=== PATIENT | male | born 1965 | race Caucasian/White ===

== ENCOUNTER 2020-01-20 13:23 | Observation (INO) ==
[2020-01-20] MEDS: NS 1000 ML 1,000 ML IV SCH ×2 (15:30→22:23)
[2020-01-20 15:42] LABS: BASOPHILS % (AUTO) 0.2 % (0.2-1.0); HEMATOCRIT 50.8 % (42.0-54.0); HEMOGLOBIN 17.4 g/dL (13.5-18.0); LYMPHOCYTES # (AUTO) 0.7 X10^3/uL (1.3-2.9); MEAN CORPUSCULAR HEMOGLOBIN 31.9 pg (27.0-34.0); MEAN CORPUSCULAR HGB CONC 34.3 g/dL (33.0-35.0); MEAN CORPUSCULAR VOLUME 93.2 fL (80.0-100.0); MEAN PLATELET VOLUME 6.9 fL (7.4-11.0); NEUTROPHILS # (AUTO) 5.4 x10^3/uL (2.2-4.8); NEUTROPHILS % (AUTO) 75.8 % (42.0-75.0); PLATELET COUNT 189 X10^3/uL (150.0-450.0); RED BLOOD COUNT 5.46 X10^6/uL (4.7-6.0); RED CELL DISTRIBUTION WIDTH 12.8 % (11.6-16.5); WHITE BLOOD COUNT 7.2 X10^3/uL (3.6-10.0)
--- NOTE | 2020-01-20 15:48 | RAD ---
HISTORYrespiratory distress, covid positiveSTUDYCHEST, 1 VIEWCOMPARISONNone.FINDINGSThe trachea is midline. The cardiac silhouette is unremarkable. Chronic emphysematous changes. The lungs are clear without focal infiltrate, pneumothorax, or effusion. The bony thorax is unremarkable.IMPRESSIONNo acute cardiopulmonary disease.Electronically signed by: LILY BARNETT (Jan 20, 2020 15:46:40)
[2020-01-20 15:50] LABS: ALANINE AMINOTRANSFERASE 30 Units/L (12-78); ALBUMIN 3.5 g/dL (3.4-5.0); ALKALINE PHOSPHATASE 92 Units/L (46-116); ASPARTATE AMINO TRANSFERASE 18 Units/L (15-37); BLOOD UREA NITROGEN 13 mg/dL (7-18); CARBON DIOXIDE 29.7 mmol/L (21-32); CHLORIDE 96 mmol/L (98-107); CREATININE 1.21 mg/dL (0.70-1.30); SODIUM 134 mmol/L (136-145); TOTAL PROTEIN 6.8 g/dL (6.4-8.2); eGFR NON BLACK RACES > 60 (>60)
[2020-01-20] MEDS ORDERED: REMDESIVIR 200 MG in NS 250 ML IV 250 ML IV SCH (16:00)
[2020-01-20 16:20] LABS: ERYTHROCYTE SEDIMENTATION RATE 2 MM/HOUR (0-15)
[2020-01-20] MEDS: DUONEB 0.5 MG/3 MG (3 mL) NEB SCH ×2 (16:25→21:44)
[2020-01-20] MEDS: SOLU-Medrol 40 MG VIAL IVP SCH ×2 (16:30→21:02)
[2020-01-20 18:39] LABS: BILIRUBIN,URINE NEGATIVE (NEGATIVE); BLOOD/HEMOGLOBIN,URINE NEGATIVE (NEGATIVE); GLUCOSE, URINE NEGATIVE (NEGATIVE); KETONES,URINE 2+ (NEGATIVE); LEUKOCYTE ESTERASE ,URINE NEGATIVE (NEGATIVE); NITRITES,URINE NEGATIVE (NEGATIVE); PH,URINE 6.5 (5.0 - 8.0); PROTEIN,URINE NEGATIVE (NEGATIVE); UROBILINOGEN,URINE NORMAL (NORMAL)
[2020-01-20 18:46] LABS: APPEARANCE,URINE CLEAR (CLEAR); COLOR,URINE STRAW (YELLOW)
[2020-01-20] MEDS: CIPRO IV 400 MG PREMIX* 400 MG/200 ML IV.SOLN. IV SCH ×2 (18:50→21:01)
[2020-01-20] MEDS: LOVENOX INJ 30 MG SYR SC SCH (21:01)
[2020-01-20] MEDS: ROBITUSSIN DM PO PRN (21:02)
[2020-01-20] MEDS: PULMICORT NEB TX 0.5 MG NEB SCH (21:44)
[2020-01-21 05:41] LABS: BASOPHILS % (AUTO) 0.6 % (0.2-1.0); HEMATOCRIT 45.8 % (42.0-54.0); LYMPHOCYTES # (AUTO) 0.4 X10^3/uL (1.3-2.9); LYMPHOCYTES % (AUTO) 6.7 % (21.0-51.0); MEAN CORPUSCULAR HEMOGLOBIN 32.3 pg (27.0-34.0); MEAN CORPUSCULAR HGB CONC 34.9 g/dL (33.0-35.0); MEAN CORPUSCULAR VOLUME 92.6 fL (80.0-100.0); MONOCYTES # (AUTO) 0.1 x10^3/uL (0.3-0.8); MONOCYTES % (AUTO) 2.1 % (0.0-13.0); NEUTROPHILS # (AUTO) 5.1 x10^3/uL (2.2-4.8); NEUTROPHILS % (AUTO) 90.6 % (42.0-75.0); PLATELET COUNT 183 X10^3/uL (150.0-450.0); RED BLOOD COUNT 4.94 X10^6/uL (4.7-6.0); RED CELL DISTRIBUTION WIDTH 13.1 % (11.6-16.5); WHITE BLOOD COUNT 5.6 X10^3/uL (3.6-10.0)
[2020-01-21] MEDS: SOLU-Medrol 40 MG VIAL IVP SCH ×3 (05:43→21:11)
[2020-01-21 05:53] LABS: ALANINE AMINOTRANSFERASE 25 Units/L (12-78); ALBUMIN 2.9 g/dL (3.4-5.0); ALKALINE PHOSPHATASE 76 Units/L (46-116); ASPARTATE AMINO TRANSFERASE 11 Units/L (15-37); BLOOD UREA NITROGEN 12 mg/dL (7-18); CARBON DIOXIDE 23.1 mmol/L (21-32); CHLORIDE 100 mmol/L (98-107); COR CA(FOR HYPOALB) 9.9 mg/dL (8.5-10.1); COR NA(FOR HYPERGLY) 140 mmol/L (136-145); CREATININE 1.28 mg/dL (0.70-1.30); SODIUM 137 mmol/L (136-145); eGFR NON BLACK RACES > 60 (>60)
[2020-01-21 06:08] LABS: ABG BASE EXCESS -3.2 mmol/L (-2.0-2.0); ABG HCO3 21.2 mmol/L (22-26)
[2020-01-21 06:53] LABS: PLATELET MORPHOLOGY COMMENT NORMAL (NORMAL)
[2020-01-21] MEDS: NS 1000 ML 1,000 ML IV SCH ×3 (06:59→22:30)
--- NOTE | 2020-01-21 07:43 | RAD ---
[id number], RESPIRATORY DISTRESSSTUDYCHEST, 1 [id number]/13/2020FINDINGSThe trachea is midline. The cardiac silhouette is stable. The lungs are clear without focal infiltrate or effusion. The bony thorax is unremarkable.IMPRESSIONNo acute cardiopulmonary disease.Electronically signed by: SREEKANTH CARRASCO (Jan 21, 2020 07:41:17)
[2020-01-21] MEDS: CIPRO IV 400 MG PREMIX* 400 MG/200 ML IV.SOLN. IV SCH ×2 (08:06→20:53)
[2020-01-21] MEDS: LOVENOX INJ 30 MG SYR SC SCH ×2 (08:06→20:54)
[2020-01-21] MEDS: ROBITUSSIN DM PO PRN ×2 (08:07→20:54)
[2020-01-21] MEDS: REMDESIVIR 100 MG in NS 250 ML IV 250 ML IV SCH (09:18)
[2020-01-21] MEDS: DUONEB 0.5 MG/3 MG (3 mL) NEB SCH ×4 (09:23→21:29)
[2020-01-21] MEDS: PULMICORT NEB TX 0.5 MG NEB SCH ×2 (09:23→21:29)
--- NOTE | 2020-01-21 11:24 | DR.H&P ---
H&P - History & Physical for Day of: H&P Date: 01/20/20 - Chief Complaint Chief Complaint: COUGH, FEVER, SOB, HEADACHE, WEAKNESS - History of Present Illness History of Present Illness: IS A 54 YEAR OLD PATIENT OF OURS WHO PRESENTED TO THE HOSPITAL A DIRECT ADMISSION DUE TO COMPLAINTS OF COUGH, FEVER, SHORTNESS OF BREATH, HEADACHE, AND GENERALIZED WEAKNESS. HIS OXYGEN SATURATIONS ON ROOM AIR WERE NOTED TO BE 84%. PATIENT TESTED POSITIVE FOR COVID- 19 ABOUT A WEEK AGO. AT THAT TIME, HE WAS STARTED ON A MEDROL DOSEPACK, AZITHROMYCIN 250MG PO DAILY, AND PLAQUENIL 200MG PO BID X 5 DAYS. HE HAS FINISHED THE COURSE OF MEDICATIONS, BUT CONTINUED TO REPORT WORSENING DESPITE COMPLIANCE WITH MEDICATIONS. HE WAS ADMITTED TO THE HOSPITAL FOR FURTHER EVALUATION AND TREATMENT OF ACUTE BRONCHITIS DUE TO COVID-19. ON ARRIVAL TO THE HOSPITAL, VITALS WERE 98.5-100-18-95%RA-126/73. LABS WERE OBTAINED. ABNORMAL LAB VALUES INCLUDE THE FOLLOWING: SODIUM 134, CHLORIDE 96, CRP 32.20. BLOOD AND SPUTUM CULTURES WERE SET UP. AN ABG WAS OBTAINED AND REVEALED: 7.390, PC02 35.0, P02 64.0, HC03 21.2, 02 SAT 92.0, BASE EXCESS -3.2, FI02 21.0. COVID-19 POSITIVE. A CHEST XRAY WAS OBTAINED AND REVEALED WORSENING BILATERAL PNEUMONIA. A CHEST XRAY WAS OBTAINED AND REVEALED: The trachea is midline. The cardiac silhouette is unremarkable. Chronic emphysematous changes. The lungs are clear without focal infiltrate, pneumothorax, or effusion. The bony thorax is unremarkable. AN EKG WAS OBTAINED AND REVEALED: SINUS TACHYCARDIA WITH HR 104. HE WAS GIVEN K-DUR 20MEQ X 1, LASIX 20MG IV X 1, AND ROCEPHIN 1G IV X 1 IN THE ER. HE WAS STARTED ON NORMAL SALINE AT 125ML/HR, REMDESIVIR 100MG IV DAILY, CIPRO 400MG IV Q12H, DUONEBS QID, PULMICORT NEBS BID, LOVENOX 30MG SC BID, ROBITUSSIN DM 10 ML PO Q4H PRN, AND SOLU-MEDROL 80MG IV Q8H. WE WILL OBTAIN AN ECHO AND PLACE HIM ON SUPPLEMENTAL OXYGEN NECESSARY. OTHERWISE, WE PLAN TO FOLLOW UP WITH AM LABS, CHEST XRAY, ABG, AND CONTINUE TO MONITOR. - Past Surgical History Surgical History: Other Additional Surgical History: CORNEA TRANSPLANT - Social History Does patient currently use any type of tobacco product: No Have you used tobacco products in the last 12 months: No Type of Tobacco Use: None Alcohol Use: None Drug Use: None - Medications Home Medications: No Known Drug Allergies Allergy (Verified 10/12/18 10:07) - Review of Systems Constitutional: Fever, Weakness Eyes: No Symptoms Reported ENT: No Symptoms Reported Respiratory: Cough, Shortness of Breath Cardiovascular: No Symptoms Reported Gastrointestinal: No Symptoms Reported Genitourinary: No Symptoms Reported Musculoskeletal: No Symptoms Reported Skin: No Symptoms Reported Neurological: Weakness - Physical Exam Vital Signs: Temperature 98.1 F Pulse Rate [Bilateral Radial] 86 Pulse Rate 95 Respiratory Rate 20 Blood Pressure [Right Arm] 142/96 Blood Pressure 126/73 O2 Sat by Pulse Oximetry 95 Oriented: Normal Eyes: Normal Ear: Normal Nose: Normal Throat: Normal Respiratory: Diminished Throughout Cardiovascular: Normal : Normal Auscultation: Bowel Sounds: Normal Palpation: Normal Tenderness: Normal Skin: Normal Musculoskeletal: Normal Psychiatric: Normal Mood Description: Calm Affect: Normal Speech Pattern: Clear - Assessment/Plan (1) Bronchitis due to 2019 novel coronavirus Status: Acute Plan: ADMIT, NORMAL SALINE AT 125ML/HR, REMDESIVIR 100MG IV DAILY, CIPRO 400MG IV Q12H, DUONEBS QID, PULMICORT NEBS BID, LOVENOX 30MG SC BID, ROBITUSSIN DM 10 ML PO Q4H PRN, AND SOLU-MEDROL 80MG IV Q8H, SUPPLEMENTAL OXYGEN - Allergies Allergies/Adverse Reactions: Allergies Allergy/AdvReac Type Severity Reaction Status Date / Time No Known Drug Allergies Allergy Verified 10/12/18 10:07
[2020-01-21 15:06] VITALS: BMI 30.1
[2020-01-22] MEDS: ROBITUSSIN DM PO PRN ×4 (05:13→23:00)
[2020-01-22 05:38] LABS: BASOPHILS % (AUTO) 0.1 % (0.2-1.0); HEMATOCRIT 43.6 % (42.0-54.0); HEMOGLOBIN 14.6 g/dL (13.5-18.0); LYMPHOCYTES # (AUTO) 0.5 X10^3/uL (1.3-2.9); MEAN CORPUSCULAR HEMOGLOBIN 31.5 pg (27.0-34.0); MEAN CORPUSCULAR HGB CONC 33.4 g/dL (33.0-35.0); MEAN PLATELET VOLUME 7.5 fL (7.4-11.0); MONOCYTES # (AUTO) 1.1 x10^3/uL (0.3-0.8); NEUTROPHILS # (AUTO) 16.7 x10^3/uL (2.2-4.8); NEUTROPHILS % (AUTO) 90.9 % (42.0-75.0); PLATELET COUNT 204 X10^3/uL (150.0-450.0); RED BLOOD COUNT 4.64 X10^6/uL (4.7-6.0); RED CELL DISTRIBUTION WIDTH 13.3 % (11.6-16.5); WHITE BLOOD COUNT 18.4 X10^3/uL (3.6-10.0)
[2020-01-22 06:01] LABS: ALANINE AMINOTRANSFERASE 24 Units/L (12-78); ALBUMIN 2.5 g/dL (3.4-5.0); ALKALINE PHOSPHATASE 71 Units/L (46-116); ASPARTATE AMINO TRANSFERASE 24 Units/L (15-37); BLOOD UREA NITROGEN 13 mg/dL (7-18); CALCIUM 8.3 mg/dL (8.5-10.1); CHLORIDE 107 mmol/L (98-107); COR CA(FOR HYPOALB) 9.5 mg/dL (8.5-10.1); COR NA(FOR HYPERGLY) 143 mmol/L (136-145); CREATININE 1.09 mg/dL (0.70-1.30); SODIUM 141 mmol/L (136-145); TOTAL PROTEIN 5.4 g/dL (6.4-8.2); eGFR NON BLACK RACES > 60 (>60)
[2020-01-22 06:05] LABS: CARBON DIOXIDE 22.6 mmol/L (21-32)
[2020-01-22] MEDS: NS 1000 ML 1,000 ML IV SCH ×3 (06:11→23:15)
[2020-01-22 06:53] LABS: PLATELET MORPHOLOGY COMMENT NORMAL (NORMAL)
[2020-01-22] MEDS: SOLU-Medrol 40 MG VIAL IVP SCH ×3 (06:58→21:03)
--- NOTE | 2020-01-22 07:58 | RAD ---
[id number], RESPIRATORY DISTRESSSTUDYCHEST, 1 [id number]/14/2020FINDINGSThe trachea is midline. Normal heart size and mediastinum within normal limits. There is a new ground-glass radiopacity in the left lower lobeNo effusions or pneumothorax. No dominant radiopacities in the right lung.IMPRESSIONFocal tenuous ground-glass radiopacity in the left lower lobeElectronically signed by: Franci Crespo (Jan 22, 2020 07:57:02)
[2020-01-22] MEDS: LOVENOX INJ 30 MG SYR SC SCH ×2 (08:42→21:03)
[2020-01-22] MEDS: CIPRO IV 400 MG PREMIX* 400 MG/200 ML IV.SOLN. IV SCH ×2 (08:42→21:03)
[2020-01-22] MEDS: PULMICORT NEB TX 0.5 MG NEB SCH ×2 (10:00→22:20)
[2020-01-22] MEDS: DUONEB 0.5 MG/3 MG (3 mL) NEB SCH ×4 (10:00→22:20)
[2020-01-22] MEDS: REMDESIVIR 100 MG in NS 250 ML IV 250 ML IV SCH (10:30)
--- NOTE | 2020-01-22 22:18 | PCM.PROG ---
Progress Note - Progress Note for Day of Date of Exam: 01/22/20 - Subjective Subjective: IS BEING TREATED FOR BRONCHITIS DUE TO COVID-19. TODAY, HE IS ALERT AND ORIENTED, LYING IN BED ON MORNING ROUNDS. HE CONTINUES WITH COMPLAINTS OF COUGH, SHORTNESS OF BREATH, AND GENERALIZED WEAKNESS. HE IS CURRENTLY ON ROOM AIR. HIS OXYGEN SATURATIONS HAVE BEEN 93-96% ON ROOM AIR. HE DENIES SIGNIFICANT IMPROVEMENT IN SYMPTOMS SINCE ADMISSION. ON EXAMINATION, HEART IS REGULAR IN RATE AND RHYTHM. BILATERAL LUNGS ARE NOTED WITH DIMINISHED LUNG SOUNDS THROUGHOUT. ABDOMEN IS ROUND, SOFT, AND NON-TENDER WITH NORMAL BOWEL SOUNDS NOTED IN ALL QUADRANTS. HIS VITALS THIS MORNING ARE: 98. 1-86-20-92%-142/96. LABS WERE OBTAINED. ABNORMAL LAB VALUES INCLUDE THE FOLLOWING: WBC 18.4, RBC 4.64, GLUCOSE 189, CALCIUM 8.3, CRP 23.70, TOTAL PROTEIN 5.4, ALBUMIN 2.5. BLOOD AND SPUTUM CULTURES ARE PENDING. CHEST XRAY REVEALED: Focal tenuous ground-glass radiopacity in the left lower lobe. HE IS CURRENLY RECEIVING NORMAL SALINE AT 125ML/HR, REMDESIVIR 100MG IV DAILY, CIPRO 400MG IV Q12H, DUONEBS QID, PULMICORT NEBS BID, LOVENOX 30MG SC BID, ROBITUSSIN DM 10 ML PO Q4H PRN, AND SOLU-MEDROL 80MG IV Q8H. WE WILL CONTINUE WITH CURRENT PLAN OF CARE TODAY. OTHERWISE, WE PLAN TO FOLLOW UP WITH AM LABS AND CONTINUE TO MONITOR. TIME SPENT ON CLINICAL ASSESSMENT, REVIEWING LABS AND IMAGING, DECISION MAKING, AND DOCUMENTATION GREATER THAN 45 MINUTES. - Past Medical Family Social History Past Med/Fam/Surg Hx: No changes since H&P Allergies: Allergies No Known Drug Allergies Allergy (Verified 10/12/18 10:07) - Review of Systems ROS: No change since H&P - Vital Signs and I&O's Vital Signs: Temperature 98.8 F Pulse Rate [Bilateral Radial] 101 Pulse Rate 99 Respiratory Rate 20 Blood Pressure [Right Arm] 151/84 Blood Pressure 126/73 O2 Sat by Pulse Oximetry 94 Intake and Output: Intake & Output 01/20/20 01/21/20 01/22/20 01/23/20 11:59 11:59 11:59 11:59 Intake Total 2697 / 2697 5070 / 5070 1150 / 1150 Balance 2697 / 7 5070 / 5070 1150 / 1150 - Physical Exam Oriented: Normal Eyes: Normal Ear: Normal Nose: Normal Throat: Normal Respiratory: Generalized, Diminished Cardiovascular: Normal : Normal Auscultation: Bowel Sounds: Normal Palpation: Normal Tenderness: Normal Skin: Normal Musculoskeletal: Normal Psychiatric: Normal Mood Description: Calm Affect: Normal Speech Pattern: Clear, Appropriate - Laboratory and Diagnostics Result Diagrams: 01/22/20 05:05 01/22/20 05:05 Labs: 01/20/20 15:22 Blood Blood Culture - Preliminary 01/20/20 15:15 Blood Blood Culture - Preliminary 01/20/20 16:25 Sputum - Expectorated Sputum Sputum Culture - Final 01/20/20 16:25 Sputum - Expectorated Sputum - Final Laboratory WBC 18.4 X10^3/uL (3.6-10.0) H D 01/22/20 05:05 RBC 4.64 X10^6/uL (4.7-6.0) L 01/22/20 05:05 Hgb 14.6 g/dL (13.5-18.0) 01/22/20 05:05 Hct 43.6 % (42.0-54.0) 01/22/20 05:05 MCV 94.0 fL (80.0-100.0) 01/22/20 05:05 MCH 31.5 pg (27.0-34.0) 01/22/20 05:05 MCHC 33.4 g/dL (33.0-35.0) 01/22/20 05:05 RDW 13.3 % (11.6-16.5) 01/22/20 05:05 Plt Count 204 X10^3/uL (150.0-450.0) 01/22/20 05:05 Plt Count Comment Adequate (ADEQUATE) 01/22/20 05:05 MPV 7.5 fL (7.4-11.0) 01/22/20 05:05 Neut % (Auto) 90.9 % (42.0-75.0) H 01/22/20 05:05 Lymph % (Auto) 3.0 % (21.0-51.0) L 01/22/20 05:05 [place] % (Auto) 6.0 % (0.0-13.0) 01/22/20 05:05 Eos % (Auto) 0.0 % (0.9-2.9) L 01/22/20 05:05 Baso % (Auto) 0.1 % (0.2-1.0) L 01/22/20 05:05 Neut # (Auto) 16.7 x10^3/uL (2.2-4.8) H 01/22/20 05:05 Lymph # (Auto) 0.5 X10^3/uL (1.3-2.9) L 01/22/20 05:05 [place] # (Auto) 1.1 x10^3/uL (0.3-0.8) H 01/22/20 05:05 Eos # (Auto) 0.0 x10^3/uL (0.0-0.2) 01/22/20 05:05 Baso # (Auto) 0.0 X10^3/uL (0.0-0.1) 01/22/20 05:05 Absolute Nucleated RBC 0.0 /100WBC 01/22/20 05:05 Total Counted 100 01/22/20 05:05 Neutrophils % (Manual) 94 % (39-76) H 01/22/20 05:05 Lymphocytes % (Manual) 2 % (13-43) L 01/22/20 05:05 Monocytes % (Manual) 4 % (4-9) 01/22/20 05:05 Eosinophils % (Manual) 1 % (0-6) 01/21/20 05:20 Plt Morphology Comment Normal (NORMAL) 01/22/20 05:05 RBC Morphology Normal (NORMAL) 01/22/20 05:05 ESR 2 MM/HOUR (0-15) 01/20/20 15:15 Sample Site Lbra 01/21/20 06:05 ABG pH 7.390 (7.35-7.45) 01/21/20 06:05 ABG pCO2 35.0 mmHg (35.0-45.0) 01/21/20 06:05 ABG pO2 64.0 mmHg (80.0-100.0) L 01/21/20 06:05 ABG HCO3 21.2 mmol/L (22-26) L 01/21/20 06:05 ABG O2 Saturation 92.0 % (90-100) 01/21/20 06:05 ABG Base Excess -3.2 mmol/L (-2.0-2.0) L 01/21/20 06:05 Urban Test Na 01/21/20 06:05 A-a Gradient 42.0 mmHg 01/21/20 06:05 FiO2 21.0 01/21/20 06:05 Blood Gas Comments Abel abg well-mtf 01/21/20 06:05 Sodium 141 mmol/L (136-145) 01/22/20 05:05 Corrected Sodium 143 mmol/L (136-145) 01/22/20 05:05 Potassium 4.2 mmol/L (3.5-5.1) 01/22/20 05:05 Chloride 107 mmol/L (98-107) 01/22/20 05:05 Carbon Dioxide 22.6 mmol/L (21-32) 01/22/20 05:05 BUN 13 mg/dL (7-18) 01/22/20 05:05 Creatinine 1.09 mg/dL (0.70-1.30) 01/22/20 05:05 Est GFR (MDRD) Af Amer > 60 (>60) 01/22/20 05:05 Est GFR (MDRD) Non-Af > 60 (>60) 01/22/20 05:05 Glucose 189 mg/dL (65-99) H 01/22/20 05:05 Calcium 8.3 mg/dL (8.5-10.1) L 01/22/20 05:05 Corrected Calcium 9.5 mg/dL (8.5-10.1) 01/22/20 05:05 Ferritin 370 ng/mL (26-388) 01/22/20 05:05 Total Bilirubin 0.20 mg/dL (0.2-1.0) 01/22/20 05:05 AST 24 Units/L (15-37) 01/22/20 05:05 ALT 24 Units/L (12-78) 01/22/20 05:05 Alkaline Phosphatase 71 Units/L (46-116) 01/22/20 05:05 C-Reactive Protein 23.70 mg/L (0-3.0) H 01/22/20 05:05 B-Natriuretic Peptide 32.9 pg/mL (0-79) 01/22/20 05:05 Total Protein 5.4 g/dL (6.4-8.2) L 01/22/20 05:05 Albumin 2.5 g/dL (3.4-5.0) L 01/22/20 05:05 Globulin 2.9 g/dL (2.5-4.5) 01/22/20 05:05 Albumin/Globulin Ratio 0.9 Ratio (1.1-2.1) L 01/22/20 05:05 Specimen Type Clean catch urine 01/20/20 18: Urine Color Straw (YELLOW) 01/20/20 18: Urine Appearance Clear (CLEAR) 01/20/20 18: Urine pH 6.5 (5.0 - 8.0) 01/20/20 18: Ur Specific [place] 1.005 (1.000-1.030) 01/20/20 18: Urine Protein Negative (NEGATIVE) 01/20/20 18: Urine Glucose (UA) Negative (NEGATIVE) 01/20/20 18: Urine Ketones 2+ (NEGATIVE) 01/20/20 18: Urine Occult Blood Negative (NEGATIVE) 01/20/20 18: Urine Nitrite Negative (NEGATIVE) 01/20/20 18: Urine Bilirubin Negative (NEGATIVE) 01/20/20 18: Urine Urobilinogen Normal (NORMAL) 01/20/20 18: Ur Leukocyte Esterase Negative (NEGATIVE) 01/20/20 18: Influenza Type A (PCR) Negative (NEGATIVE) 01/20/20 18: Influenza Type B (PCR) Negative (NEGATIVE) 01/20/20 18: SARS CoV-2 RNA Rapid ELIZABETH Positive (NEGATIVE) A 01/20/20 13:50 - Plan (1) Bronchitis due to 2019 novel coronavirus Status: Acute Plan: NORMAL SALINE AT 125ML/HR, REMDESIVIR 100MG IV DAILY, CIPRO 400MG IV Q12H, DUONEBS QID, PULMICORT NEBS BID, LOVENOX 30MG SC BID, ROBITUSSIN DM 10 ML PO Q4H PRN, AND SOLU-MEDROL 80MG IV Q8H, SUPPLEMENTAL OXYGEN
[2020-01-23] MEDS: NS 1000 ML 1,000 ML IV SCH (01:32)
[2020-01-23] MEDS: SOLU-Medrol 40 MG VIAL IVP SCH (05:47)
[2020-01-23 06:00] LABS: ABG ALLEN TEST POS; ABG BASE EXCESS 1.9 mmol/L (-2.0-2.0); ABG HCO3 25.6 mmol/L (22-26)
[2020-01-23 06:10] LABS: BASOPHILS % (AUTO) 0.1 % (0.2-1.0); HEMATOCRIT 43.5 % (42.0-54.0); HEMOGLOBIN 14.7 g/dL (13.5-18.0); LYMPHOCYTES # (AUTO) 0.5 X10^3/uL (1.3-2.9); LYMPHOCYTES % (AUTO) 2.7 % (21.0-51.0); MEAN CORPUSCULAR HEMOGLOBIN 31.5 pg (27.0-34.0); MEAN CORPUSCULAR HGB CONC 33.7 g/dL (33.0-35.0); MEAN CORPUSCULAR VOLUME 93.5 fL (80.0-100.0); MEAN PLATELET VOLUME 7.5 fL (7.4-11.0); MONOCYTES # (AUTO) 0.6 x10^3/uL (0.3-0.8); MONOCYTES % (AUTO) 3.4 % (0.0-13.0); NEUTROPHILS # (AUTO) 15.8 x10^3/uL (2.2-4.8); NEUTROPHILS % (AUTO) 93.8 % (42.0-75.0); PLATELET COUNT 195 X10^3/uL (150.0-450.0); RED BLOOD COUNT 4.66 X10^6/uL (4.7-6.0); RED CELL DISTRIBUTION WIDTH 13.2 % (11.6-16.5); WHITE BLOOD COUNT 16.8 X10^3/uL (3.6-10.0)
--- NOTE | 2020-01-23 06:43 | RAD ---
HISTORYSOB, COVID+STUDYCHEST, 1 [id number] view of the chestFINDINGSCardiac and mediastinal contours are within normal limits. Left lower lung patchy opacity appears similar to prior. No pleural effusion or pneumothorax.IMPRESSIONNo significant change.Electronically signed by: Jef Galsgow (Jan 23, 2020 06:42:06)
[2020-01-23 06:44] LABS: ALANINE AMINOTRANSFERASE 23 Units/L (12-78); ALBUMIN 2.4 g/dL (3.4-5.0); ALKALINE PHOSPHATASE 60 Units/L (46-116); ASPARTATE AMINO TRANSFERASE 15 Units/L (15-37); BLOOD UREA NITROGEN 14 mg/dL (7-18); CALCIUM 8.5 mg/dL (8.5-10.1); CARBON DIOXIDE 24.3 mmol/L (21-32); CHLORIDE 107 mmol/L (98-107); COR CA(FOR HYPOALB) 9.8 mg/dL (8.5-10.1); COR NA(FOR HYPERGLY) 141 mmol/L (136-145); CREATININE 1.02 mg/dL (0.70-1.30); SODIUM 140 mmol/L (136-145); TOTAL PROTEIN 5.3 g/dL (6.4-8.2); eGFR NON BLACK RACES > 60 (>60)
[2020-01-23 06:52] LABS: PLATELET MORPHOLOGY COMMENT NORMAL (NORMAL)
[2020-01-23] MEDS: CIPRO IV 400 MG PREMIX* 400 MG/200 ML IV.SOLN. IV SCH (08:31)
[2020-01-23] MEDS: LOVENOX INJ 30 MG SYR SC SCH (08:31)
[2020-01-23] MEDS: PULMICORT NEB TX 0.5 MG NEB SCH (10:00)
[2020-01-23] MEDS: DUONEB 0.5 MG/3 MG (3 mL) NEB SCH (10:00)
[2020-01-23] MEDS ORDERED: REMDESIVIR 200 MG in NS 250 ML IV 250 ML IV NR (10:00)
[2020-01-23 10:47] VITALS: BP 143/77
[2020-01-23] MEDS ORDERED: REMDESIVIR 100 MG in NS 250 ML IV 250 ML IV ONE (13:00)
== END 2020-01-23 12:30 | disposition home or self-care (01) ==
LOC: MED/SURG
PROVIDERS: ADMIT Internal Medicine; ATTEND Internal Medicine
DX: J40 Bronchitis, not specified as acute or chronic; R79.82 Elevated C-reactive protein (CRP); R51.9 Headache, unspecified; R79.89 Other specified abnormal findings of blood chemistry; U07.1 COVID-19; R06.02 Shortness of breath

== ENCOUNTER 2022-04-24 17:53 | Observation (INO) ==
[2022-04-24 18:30] LABS: BASOPHILS % (AUTO) 0.3 % (0.2-1.0); EOSINOPHILS % (AUTO) 0.1 % (0.9-2.9); HEMOGLOBIN 17.7 g/dL (13.5-18.0); LYMPHOCYTES # (AUTO) 1.5 X10^3/uL (1.3-2.9); LYMPHOCYTES % (AUTO) 11.4 % (21.0-51.0); MEAN CORPUSCULAR HEMOGLOBIN 31.6 pg (27.0-34.0); MEAN CORPUSCULAR HGB CONC 34.1 g/dL (33.0-35.0); MEAN CORPUSCULAR VOLUME 92.7 fL (80.0-100.0); MEAN PLATELET VOLUME 6.9 fL (7.4-11.0); MONOCYTES # (AUTO) 1.3 x10^3/uL (0.3-0.8); MONOCYTES % (AUTO) 10.3 % (0.0-13.0); NEUTROPHILS # (AUTO) 10.2 x10^3/uL (2.2-4.8); NEUTROPHILS % (AUTO) 77.9 % (42.0-75.0); RED BLOOD COUNT 5.61 X10^6/uL (4.7-6.0); RED CELL DISTRIBUTION WIDTH 14.8 % (11.6-16.5); WHITE BLOOD COUNT 13.1 X10^3/uL (3.6-10.0)
[2022-04-24 18:36] LABS: ALANINE AMINOTRANSFERASE 29 Units/L (12-78); ALBUMIN 4.2 g/dL (3.4-5.0); ALKALINE PHOSPHATASE 62 Units/L (46-116); AMYLASE 69 Units/L (25-115); ASPARTATE AMINO TRANSFERASE 18 Units/L (15-37); BLOOD UREA NITROGEN 12 mg/dL (7-18); CALCIUM 8.7 mg/dL (8.5-10.1); CARBON DIOXIDE 31.3 mmol/L (21-32); CHLORIDE 103 mmol/L (98-107); CREATININE 1.24 mg/dL (0.70-1.30); LIPASE 135 Units/L (73-393); SODIUM 140 mmol/L (136-145); TOTAL PROTEIN 6.6 g/dL (6.4-8.2); eGFR NON BLACK RACES > 60 (>60)
--- NOTE | 2022-04-24 18:39 | DR.GENAD ---
HPI Time Seen Time Seen by Provider: 04/24/22 18:38 PCP Primary Care Physician: kamran Complaint/Symptoms Chief Complaint:: pt had hernia repair yesterday with dr berry states he went home and started having pain along with bloating states he has taken several laxatives and suppository to go to the bathroom with no relief. pt c/o of sob and feeling like alot of pressure in his abd states he feels the need to vomit but no nausea. Self Treatment fo Chief Complaint: miralax x2 ducolax x2 ducolax supp x1 enema x2 last enema was at 1625 today COVID-19 Coronavirus risk:travel/contact w/high risk person: No Has patient experienced Coronavirus symptoms: No Source History Provided: Patient Mode of Arrival Mode of Arrival: Ambulatory Timing Onset of Chief Complaint: 04/24/22 PMH PMH Past Medical History: Yes Past Medical History: Gout and Hypertension Past Surgical History: Yes Surgical History: Other Past Surgical History Comment: hernia repair Family History History of Family Medical Conditions: No Social History Does patient currently use any type of tobacco product: No Have you used tobacco products in the last 12 months: No Type of Tobacco Use: None Does any household member use tobacco: No Alcohol Use: None Do you use any recreational Drugs:: No Lives With: Spouse Lives Where: Home Travel Risk Coronavirus risk:travel/contact w/high risk person: No Has patient experienced Coronavirus symptoms: No Infectious screening In the last 2 months have you had wt loss of >10#?: NO Have you had fever, night sweats or hemotysis?: No Have you traveled outside the country in the last 6 months?: No Isolation: Standard PE Vital Signs Vitals: Temperature 98.1 F Pulse Rate 67 Respiratory Rate 18 Blood Pressure [Right Arm] 143/77 Blood Pressure 159/95 O2 Sat by Pulse Oximetry 95 ROR Labs Reviewed Result Diagrams: 04/24/22 18:15 04/24/22 18:15 Laboratory: WBC 13.1 X10^3/uL (3.6-10.0) H 04/24/22 18:15 RBC 5.61 X10^6/uL (4.7-6.0) 04/24/22 18:15 Hgb 17.7 g/dL (13.5-18.0) 04/24/22 18:15 Hct 52.0 % (42.0-54.0) 04/24/22 18:15 MCV 92.7 fL (80.0-100.0) 04/24/22 18:15 MCH 31.6 pg (27.0-34.0) 04/24/22 18:15 MCHC 34.1 g/dL (33.0-35.0) 04/24/22 18:15 RDW 14.8 % (11.6-16.5) 04/24/22 18:15 Plt Count 332 X10^3/uL (150.0-450.0) 04/24/22 18:15 MPV 6.9 fL (7.4-11.0) L 04/24/22 18:15 Neut % (Auto) 77.9 % (42.0-75.0) H 04/24/22 18:15 Lymph % (Auto) 11.4 % (21.0-51.0) L 04/24/22 18:15 [place] % (Auto) 10.3 % (0.0-13.0) 04/24/22 18:15 Eos % (Auto) 0.1 % (0.9-2.9) L 04/24/22 18:15 Baso % (Auto) 0.3 % (0.2-1.0) 04/24/22 18:15 Neut # (Auto) 10.2 x10^3/uL (2.2-4.8) H 04/24/22 18:15 Lymph # (Auto) 1.5 X10^3/uL (1.3-2.9) 04/24/22 18:15 [place] # (Auto) 1.3 x10^3/uL (0.3-0.8) H 04/24/22 18:15 Eos # (Auto) 0.0 x10^3/uL (0.0-0.2) 04/24/22 18:15 Baso # (Auto) 0.0 X10^3/uL (0.0-0.1) 04/24/22 18:15 Absolute Nucleated RBC 0.3 /100WBC 04/24/22 18:15 Sodium 140 mmol/L (136-145) 04/24/22 18:15 Corrected Sodium TNP 04/24/22 18:15 Potassium 4.1 mmol/L (3.5-5.1) 04/24/22 18:15 Chloride 103 mmol/L (98-107) 04/24/22 18:15 Carbon Dioxide 31.3 mmol/L (21-32) 04/24/22 18:15 BUN 12 mg/dL (7-18) 04/24/22 18:15 Creatinine 1.24 mg/dL (0.70-1.30) 04/24/22 18:15 Est GFR (MDRD) Af Amer > 60 (>60) 04/24/22 18:15 Est GFR (MDRD) Non-Af > 60 (>60) 04/24/22 18:15 Glucose 106 mg/dL (65-99) H 04/24/22 18:15 Calcium 8.7 mg/dL (8.5-10.1) 04/24/22 18:15 Corrected Calcium TNP 04/24/22 18:15 Total Bilirubin 0.90 mg/dL (0.2-1.0) 04/24/22 18:15 AST 18 Units/L (15-37) 04/24/22 18:15 ALT 29 Units/L (12-78) 04/24/22 18:15 Alkaline Phosphatase 62 Units/L (46-116) 04/24/22 18:15 Total Protein 6.6 g/dL (6.4-8.2) 04/24/22 18:15 Albumin 4.2 g/dL (3.4-5.0) 04/24/22 18:15 Globulin 2.4 g/dL (2.5-4.5) L 04/24/22 18:15 Albumin/Globulin Ratio 1.8 Ratio (1.1-2.1) 04/24/22 18:15 Amylase 69 Units/L (25-115) 04/24/22 18:15 Lipase 135 Units/L (73-393) 04/24/22 18:15 Opioid Opioid Risk Tool Age (Rohit box if 16-45): No History of Preadolescent Sexual Abuse: No Total: 0 Total Score Risk Category: Low Risk Copyright: Nazario ONEILL predicting aberrant behaviors Discharge Plan Discharge Plan Patient Disposition: HOME, SELF-CARE Condition: Stable Prescriptions: No Action losartan 100 mg tablet 100 mg PO QDAY ondansetron HCl 4 mg tablet 1 tab PO Q6H PRN allopurinol 100 mg tablet 1 tab PO QDAY oxycodone-acetaminophen 5-325 mg tablet 1 tab PO Q4H PRN Health Concerns: Post Hospitalization: new medications and changes needed to prevent readmission or further decline. Pt educated and given instructions on all concerns. Plan of Treatment: Continue with present treatment and follow up plan. Pt is to keep follow up appointment as instructed and take medications as ordered. Orders to Discharge Patient Discharge Orders: Transfer (Routine); Ordered 04/24/22 Ordered By: ANABEL BROWN Follow ups/Referrals Follow ups/Referrals: Maximus Fernandez [Primary Care Provider] - 3 days
[2022-04-24] MEDS ORDERED: ZOFRAN INJ 4 MG VIAL IVP ONE (19:43)
[2022-04-24] MEDS ORDERED: DILAUDID INJ IVP ONE (19:43)
[2022-04-24] MEDS: D5 NS 1,000 ML IV 1,000 ML IV SCH (20:06)
[2022-04-24 22:17] VITALS: BMI 29.2
[2022-04-25] MEDS: DILAUDID INJ IVP PRN ×2 (01:00→08:10)
[2022-04-25] MEDS: D5 NS 1,000 ML IV 1,000 ML IV SCH ×3 (03:40→20:56)
[2022-04-25 05:48] LABS: BASOPHILS % (AUTO) 0.4 % (0.2-1.0); EOSINOPHILS % (AUTO) 0.2 % (0.9-2.9); HEMATOCRIT 47.9 % (42.0-54.0); HEMOGLOBIN 16.3 g/dL (13.5-18.0); LYMPHOCYTES # (AUTO) 1.1 X10^3/uL (1.3-2.9); LYMPHOCYTES % (AUTO) 9.4 % (21.0-51.0); MEAN CORPUSCULAR HEMOGLOBIN 31.5 pg (27.0-34.0); MEAN CORPUSCULAR HGB CONC 34.1 g/dL (33.0-35.0); MEAN CORPUSCULAR VOLUME 92.6 fL (80.0-100.0); MEAN PLATELET VOLUME 6.9 fL (7.4-11.0); MONOCYTES # (AUTO) 1.4 x10^3/uL (0.3-0.8); NEUTROPHILS # (AUTO) 9.3 x10^3/uL (2.2-4.8); RED BLOOD COUNT 5.18 X10^6/uL (4.7-6.0); RED CELL DISTRIBUTION WIDTH 14.6 % (11.6-16.5); WHITE BLOOD COUNT 11.9 X10^3/uL (3.6-10.0)
[2022-04-25 05:56] LABS: ALANINE AMINOTRANSFERASE 23 Units/L (12-78); ALBUMIN 3.5 g/dL (3.4-5.0); ALKALINE PHOSPHATASE 58 Units/L (46-116); ASPARTATE AMINO TRANSFERASE 14 Units/L (15-37); BLOOD UREA NITROGEN 11 mg/dL (7-18); CALCIUM 7.9 mg/dL (8.5-10.1); CARBON DIOXIDE 29.6 mmol/L (21-32); CHLORIDE 105 mmol/L (98-107); SODIUM 140 mmol/L (136-145); TOTAL PROTEIN 5.7 g/dL (6.4-8.2); eGFR NON BLACK RACES > 60 (>60)
[2022-04-25] MEDS ORDERED: MAALOX or MYLANTA PO PRN (07:45)
[2022-04-25] MEDS ORDERED: FLEET ENEMA ADULT PR ONE (07:46)
[2022-04-25] MEDS: ZYLOPRIM PO SCH (08:09)
[2022-04-25] MEDS: COZAAR PO SCH (08:09)
[2022-04-25] MEDS: ZOFRAN INJ 4 MG VIAL IVP PRN ×2 (08:16→16:13)
[2022-04-25] MEDS ORDERED: CATAPRES TAB 0.1 MG PO ONE ×2 (10:56→21:00)
[2022-04-25] MEDS ORDERED: APRESOLINE INJ 20 MG VIAL IVP ONE (10:56)
[2022-04-25] MEDS ORDERED: PHENERGAN INJ 25 MG IM PRN (10:59)
[2022-04-25] MEDS: MORPHINE SULFATE INJ 2 MG INJ IVP PRN ×2 (11:05→16:12)
--- NOTE | 2022-04-25 12:17 | DR.CONSULT ---
CONSULT Consultation for Day of: Date: 04/25/22 Chief Complaint Chief Complaint: Medical consultation for hypertension, constipation and abdominal distention. Allergies Allergies Allergy/AdvReac Type Severity Reaction Status Date / Time No Known Drug Allergies Allergy Unknown Verified 04/23/22 06:40 History of Present Illness History of Present Illness: This is a pleasant 57-year-old white male who just went under a hernia repair by Dr. Singh on April 23, 2022. The day after the surgery the patient became nauseated felt like vomiting and his abdomen is becam e distended. He is taken multiple laxatives but has not been able to have a bowel movement this time. The nausea became worse later in the day and he decided to go to the emergency department to get checked out and was subsequently in admitted because he is not moving his bowels. In the meantime he has a fair amount of abdominal distention with a large amount of diffuse tympany and he currently has 2 fleets enemas ordered but have not been given at this time. Labs overall look good and we will see if he responds to the fleets enemas. I do note that his blood pressure is elevated and he is on losartan 100 mg daily. I will add Bystolic 10 mg to help with his hypertension in the meantime and we will follow-up after he is relieved to see if his blood pressure comes back down. Past Medical History Past Medical History: Gout and Hypertension Past Surgical History Surgical History: Other Additional Surgical History: CORNEA TRANSPLANT Social History Does patient currently use any type of tobacco product: No Have you used tobacco products in the last 12 months: No Type of Tobacco Use: None Does any household member use tobacco: No Alcohol Use: None Drug Use: None Medications Home Medications: No Known Drug Allergies Allergy (Unknown, Verified 04/23/22 06:40) CONTINUE taking the following medications allopurinol 100 mg tablet 1 tab PO QDAY 04/24/22 [History] ondansetron HCl 4 mg tablet 1 tab PO Q6H PRN 04/24/22 [History] oxycodone-acetaminophen 5 mg-325 mg tablet 1 tab PO Q4H PRN 04/24/22 [History] Review of Systems Constitutional: No Symptoms Reported Eyes: No Symptoms Reported ENT: No Symptoms Reported Respiratory: No Symptoms Reported Cardiovascular: No Symptoms Reported Gastrointestinal: Nausea, Abdominal Pain and Constipation; denies Vomiting, Diarrhea or Melena Genitourinary: No Symptoms Reported Musculoskeletal: No Symptoms Reported Skin: No Symptoms Reported Neurological: No Symptoms Reported Physical Exam Vital Signs: Temperature 98.0 F Pulse Rate [Left Radial] 96 Pulse Rate 67 Respiratory Rate 18 Blood Pressure [Right Arm] 170/110 Blood Pressure 159/95 O2 Sat by Pulse Oximetry 97 Oriented: Normal, Time, Person and Place; negative Not Oriented Eyes: Normal Ear: Normal Nose: Normal Respiratory: Clear Throughout Cardiovascular: Normal Auscultation: Bowel Sounds: Decreased Palpation: Normal and Other (Diffuse abdominal distention with diffuse tympany.) Tenderness: Normal Skin: Normal Musculoskeletal: Normal Psychiatric: Normal Mood Description: Calm Affect: Normal Speech Pattern: Clear and Appropriate Plan (1) Hypertension: Status: None Plan: Continue losartan 100 mg p.o. daily and I will add Bystolic 10 mg daily. (2) Constipation: Status: Acute Plan: Please enemas x2. (3) Gaseous abdominal distention: Status: Acute Plan: Patient has fleets enemas x2 ordered for this morning. We will follow-up later today with results.
[2022-04-25] MEDS: COREG TAB 12.5 MG PO SCH ×2 (13:54→20:04)
--- NOTE | 2022-04-25 16:07 | DR.PROGNOT ---
HOSPITAL PROGRESS NOTE Progress Note for Day of: Progress Note Date: 04/25/22 Chief Complaint Chief Complaint: less nausea with medications . poor appetite . no BM yet .( was given fleet enemas . afebrile .. Past Medical Family Social History Past Med/Fam/Surg Hx: No changes since H&P Allergies: Allergies No Known Drug Allergies Allergy (Unknown, Verified 04/23/22 06:40) Onset Date: 06/16/2021 Vital Signs Vital Signs: Temperature 99.0 F Pulse Rate [Left Radial] 85 Pulse Rate 67 Respiratory Rate 20 Blood Pressure [Left Arm] 150/100 Blood Pressure [Right Arm] 150/104 Blood Pressure 159/95 O2 Sat by Pulse Oximetry 96 Physical Exam Oriented: Normal, Time, Person and Place; negative Not Oriented Eyes: Normal Ear: Normal Nose: Normal Cardiovascular: Normal GI:Auscultation: Decreased GI:Palpation: Normal and Other (Diffuse abdominal distention with diffuse tympany.) GI: Tenderness: Normal Skin: Normal Musculoskeletal: Normal Psychiatric: Normal Mood Description: Calm Affect: Normal Speech Pattern: Clear and Appropriate Laboratory and Diagnostics Result Diagrams: 04/25/22 05:14 04/25/22 05:14 Labs: Laboratory WBC 11.9 X10^3/uL (3.6-10.0) H 04/25/22 05:14 RBC 5.18 X10^6/uL (4.7-6.0) 04/25/22 05:14 Hgb 16.3 g/dL (13.5-18.0) 04/25/22 05:14 Hct 47.9 % (42.0-54.0) 04/25/22 05:14 MCV 92.6 fL (80.0-100.0) 04/25/22 05:14 MCH 31.5 pg (27.0-34.0) 04/25/22 05:14 MCHC 34.1 g/dL (33.0-35.0) 04/25/22 05:14 RDW 14.6 % (11.6-16.5) 04/25/22 05:14 Plt Count 283 X10^3/uL (150.0-450.0) 04/25/22 05:14 MPV 6.9 fL (7.4-11.0) L 04/25/22 05:14 Neut % (Auto) 78.0 % (42.0-75.0) H 04/25/22 05:14 Lymph % (Auto) 9.4 % (21.0-51.0) L 04/25/22 05:14 [place] % (Auto) 12.0 % (0.0-13.0) 04/25/22 05:14 Eos % (Auto) 0.2 % (0.9-2.9) L 04/25/22 05:14 Baso % (Auto) 0.4 % (0.2-1.0) 04/25/22 05:14 Neut # (Auto) 9.3 x10^3/uL (2.2-4.8) H 04/25/22 05:14 Lymph # (Auto) 1.1 X10^3/uL (1.3-2.9) L 04/25/22 05:14 [place] # (Auto) 1.4 x10^3/uL (0.3-0.8) H 04/25/22 05:14 Eos # (Auto) 0.0 x10^3/uL (0.0-0.2) 04/25/22 05:14 Baso # (Auto) 0.0 X10^3/uL (0.0-0.1) 04/25/22 05:14 Absolute Nucleated RBC 0.0 /100WBC 04/25/22 05:14 Sodium 140 mmol/L (136-145) 04/25/22 05:14 Corrected Sodium TNP 04/25/22 05:14 Potassium 4.0 mmol/L (3.5-5.1) 04/25/22 05:14 Chloride 105 mmol/L (98-107) 04/25/22 05:14 Carbon Dioxide 29.6 mmol/L (21-32) 04/25/22 05:14 BUN 11 mg/dL (7-18) 04/25/22 05:14 Creatinine 1.00 mg/dL (0.70-1.30) 04/25/22 05:14 Est GFR (MDRD) Af Amer > 60 (>60) 04/25/22 05:14 Est GFR (MDRD) Non-Af > 60 (>60) 04/25/22 05:14 Glucose 108 mg/dL (65-99) H 04/25/22 05:14 Calcium 7.9 mg/dL (8.5-10.1) L 04/25/22 05:14 Corrected Calcium TNP 04/25/22 05:14 Total Bilirubin 0.80 mg/dL (0.2-1.0) 04/25/22 05:14 AST 14 Units/L (15-37) L 04/25/22 05:14 ALT 23 Units/L (12-78) 04/25/22 05:14 Alkaline Phosphatase 58 Units/L (46-116) 04/25/22 05:14 Total Protein 5.7 g/dL (6.4-8.2) L 04/25/22 05:14 Albumin 3.5 g/dL (3.4-5.0) 04/25/22 05:14 Globulin 2.2 g/dL (2.5-4.5) L 04/25/22 05:14 Albumin/Globulin Ratio 1.6 Ratio (1.1-2.1) 04/25/22 05:14 Amylase 69 Units/L (25-115) 04/24/22 18:15 Lipase 135 Units/L (73-393) 04/24/22 18:15 Assessment and Plan 1: post operative ileus . s/p umbilical hernia repair . HTN . on IVF, , enemas , pain and nausea control . medical consult reg HTN .
[2022-04-25] MEDS ORDERED: DULCOLAX SUPPOSITORY 10 MG RECTAL ONE (17:00)
[2022-04-25] MEDS ORDERED: TORADOL 30 MG VIAL IVP PRN (18:28)
[2022-04-25] MEDS: MILK OF MAGNESIA PO SCH ×2 (20:04→20:05)
[2022-04-25] MEDS ORDERED: MIRALAX POWDER (1 DOSE 17 G) PO SCH (21:00)
[2022-04-26] MEDS: D5 NS 1,000 ML IV 1,000 ML IV SCH (04:38)
[2022-04-26 05:59] LABS: BASOPHILS % (AUTO) 0.3 % (0.2-1.0); EOSINOPHILS # (AUTO) 0.1 x10^3/uL (0.0-0.2); EOSINOPHILS % (AUTO) 0.6 % (0.9-2.9); HEMATOCRIT 46.4 % (42.0-54.0); HEMOGLOBIN 15.8 g/dL (13.5-18.0); LYMPHOCYTES # (AUTO) 0.9 X10^3/uL (1.3-2.9); LYMPHOCYTES % (AUTO) 8.5 % (21.0-51.0); MEAN CORPUSCULAR HEMOGLOBIN 31.8 pg (27.0-34.0); MEAN CORPUSCULAR HGB CONC 34.1 g/dL (33.0-35.0); MEAN CORPUSCULAR VOLUME 93.1 fL (80.0-100.0); MEAN PLATELET VOLUME 6.8 fL (7.4-11.0); MONOCYTES # (AUTO) 1.4 x10^3/uL (0.3-0.8); MONOCYTES % (AUTO) 12.7 % (0.0-13.0); NEUTROPHILS # (AUTO) 8.3 x10^3/uL (2.2-4.8); NEUTROPHILS % (AUTO) 77.9 % (42.0-75.0); RED BLOOD COUNT 4.99 X10^6/uL (4.7-6.0); RED CELL DISTRIBUTION WIDTH 14.4 % (11.6-16.5); WHITE BLOOD COUNT 10.7 X10^3/uL (3.6-10.0)
[2022-04-26 06:19] LABS: ALANINE AMINOTRANSFERASE 17 Units/L (12-78); ALKALINE PHOSPHATASE 54 Units/L (46-116); ASPARTATE AMINO TRANSFERASE 15 Units/L (15-37); BLOOD UREA NITROGEN 10 mg/dL (7-18); CALCIUM 7.9 mg/dL (8.5-10.1); CARBON DIOXIDE 31.2 mmol/L (21-32); CHLORIDE 103 mmol/L (98-107); COR CA(FOR HYPOALB) 8.7 mg/dL (8.5-10.1); COR NA(FOR HYPERGLY) 140 mmol/L (136-145); CREATININE 1.13 mg/dL (0.70-1.30); MAGNESIUM 2.1 mg/dL (2.0-2.9); SODIUM 140 mmol/L (136-145); TOTAL PROTEIN 5.2 g/dL (6.4-8.2); eGFR NON BLACK RACES > 60 (>60)
[2022-04-26] MEDS: ZYLOPRIM PO SCH (08:18)
[2022-04-26] MEDS: COZAAR PO SCH (08:18)
[2022-04-26] MEDS: MILK OF MAGNESIA PO SCH (08:18)
[2022-04-26] MEDS: COREG TAB 12.5 MG PO SCH (08:18)
[2022-04-26 09:39] VITALS: BP 120/78
== END 2022-04-26 11:19 | disposition home or self-care (01) ==
LOC: ER 17:53 → MED/SURG 17:53
PROVIDERS: ADMIT Surgery; ATTEND Surgery
DX: I10 Essential (primary) hypertension; K91.89 Other postprocedural complications and disorders of digestive system; K59.09 Other constipation; K56.690 Other partial intestinal obstruction; Z98.890 Other specified postprocedural states; R00.0 Tachycardia, unspecified; E66.8 Other obesity; R14.0 Abdominal distension (gaseous); R10.84 Generalized abdominal pain; R06.02 Shortness of breath

== ENCOUNTER 2023-04-25 04:30 | Observation (INO) ==
--- NOTE | 2023-04-25 04:45 | DR.ABDMALE ---
HPI Time seen Time Seen by Provider: 04/25/23 04:44 Complaint Chief Complaint Doctors Comments: Abdominal distention. Patient has not had a stool since tuesday and has not had flatus. Patient had a hernia repair 2 yrs ago and had similiar sxs after the surgery and had to be admitted for [address] Garcia is his surgeon. Patient denies:fever,urinary sxs,n,v,back pain,hematemesis,hematochezia. PMH PMH Past Medical History: Gout and Hypertension Past Surgical History: Yes Surgical History: Other Social History Do you use any recreational Drugs:: No ROS Review of Systems Constitutional: No Symptoms Reported Eyes: No Symptoms Reported ENTM: No Symptoms Reported Respiratoy: No Symptoms Reported Cardiovascular: No Symptoms Reported Gastrointestinal/Abdominal: No Symptoms Reported, Abdominal Pain (distention) and Other (no flatus since tuesday); negative Nausea or Vomiting Genitourinary: No Symptoms Reported Neurological: No Symptoms Reported Musculoskeletal: No Symptoms Reported Integumentary: No Symptoms Reported Hematologic/Lymphatic: No Symptoms Reported Endocrine: No Symptoms Reported Psychiatric: No Symptoms Reported All Other Systems: Reviewed and Negative PE Vital Signs Vital Signs: Temp Pulse Resp BP Pulse Ox O2 Del Method 04/25/23 07:31 18 04/25/23 04:35 98.6 F 109 H 22 135/96 95 Room Air General Limitations: No Limitations General Appearance: Alert and In No Apparent Distress Head Head Exam: Normal Inspection Eyes Eye exam: Normal Appearance ENT ENT Exam: Normal Exam Neck Neck Exam: Normal Inspection Chest Chest Inspection: Normal Inspection Respiratory Respiratory Exam: Normal Lung Sounds Bilat Respiratory Exam: Bilateral: Clear to Auscultation Cardiovascular Cardiovascular Exam: Tachycardia Abdominal Exam Abdominal Exam: Distention, Tenderness (generalized) and Hypoactive Bowel Sounds Abdominal Tenderness: Diffuse Rectal Rectal Exam: Deferred Back Back Exam: Normal Inspection Extremeties Extremities Exam: Normal Inspection Exam: Male: Deferred Neurologic Neurological Exam: Alert and Oriented X3 Psychiatric Psychiatric Exam: Normal Affect and Normal Mood Skin Skin Exam: Warm, Dry, Intact and Normal Color MDM Differential Diagnosis Differential Diagnosis: Bowel Obstruction, Inflammatory BD, Ischemic Bowel, Urinary tract infection and Other (comments) (perforation) Other differential diagnosis: kidney stone COURSE Treatment Treatment: Patient was brought to an exam rm and iv access was initiated.Labs /test were ordered. Patient's abd/pelvis CT revealed ureterolithiasis L 3.8 mm stone LUVJ/5.0 mm stone also in L ureter above the other stone. There is also distention of the colon to the proximal descending colon with wall thickening and narrowing of lumen that may be secondary to malignancy. labs reviewed: wbc 14.3/amylase 61/lipase 41. 07:[address] Garcia.He has accepted patient to his service. Patient was given dilaudid 1mg iv and zofran 4mg iv for pain and nausea.He will be given an LR bolus and zosyn 3.375mg iv . Patient has been stab;e in the ED. [facility]OR Labs Reviewed 04/25/23 05:00 04/25/23 05:00 Laboratory: WBC 14.3 X10^3/uL (3.6-10.0) H 04/25/23 05:00 RBC 5.80 X10^6/uL (4.7-6.0) 04/25/23 05:00 Hgb 18.2 g/dL (13.5-18.0) H 04/25/23 05:00 Hct 54.5 % (42.0-54.0) H 04/25/23 05:00 MCV 94.0 fL (80.0-100.0) 04/25/23 05:00 MCH 31.3 pg (27.0-34.0) 04/25/23 05:00 MCHC 33.4 g/dL (33.0-35.0) 04/25/23 05:00 RDW 13.0 % (11.6-16.5) 04/25/23 05:00 Plt Count 240 X10^3/uL (150.0-450.0) 04/25/23 05:00 MPV 6.4 fL (7.4-11.0) L 04/25/23 05:00 Neut % (Auto) 87.6 % (42.0-75.0) H 04/25/23 05:00 Lymph % (Auto) 3.4 % (21.0-51.0) L 04/25/23 05:00 [place] % (Auto) 8.6 % (0.0-13.0) 04/25/23 05:00 Eos % (Auto) 0.0 % (0.9-2.9) L 04/25/23 05:00 Baso % (Auto) 0.4 % (0.2-1.0) 04/25/23 05:00 Neut # (Auto) 12.5 x10^3/uL (2.2-4.8) H 04/25/23 05:00 Lymph # (Auto) 0.5 X10^3/uL (1.3-2.9) L 04/25/23 05:00 [place] # (Auto) 1.2 x10^3/uL (0.3-0.8) H 04/25/23 05:00 Eos # (Auto) 0.0 x10^3/uL (0.0-0.2) 04/25/23 05:00 Baso # (Auto) 0.1 X10^3/uL (0.0-0.1) 04/25/23 05:00 Absolute Nucleated RBC 0.1 /100WBC 04/25/23 05:00 Sodium 140 mmol/L (136-145) 04/25/23 05:00 Corrected Sodium 140 mmol/L (136-145) 04/25/23 05:00 Potassium 4.3 mmol/L (3.5-5.1) 04/25/23 05:00 Chloride 102 mmol/L (98-107) 04/25/23 05:00 Carbon Dioxide 29.0 mmol/L (21-32) 04/25/23 05:00 BUN 13 mg/dL (7-18) 04/25/23 05:00 Creatinine 2.05 mg/dL (0.70-1.30) H 04/25/23 05:00 Est GFR (MDRD) Af Amer 43 (>60) L 04/25/23 05:00 Est GFR (MDRD) Non-Af 36 (>60) L 04/25/23 05:00 Glucose 114 mg/dL (65-99) H 04/25/23 05:00 Calcium 9.0 mg/dL (8.5-10.1) 04/25/23 05:00 Corrected Calcium TNP 04/25/23 05:00 Total Bilirubin 1.40 mg/dL (0.2-1.0) H 04/25/23 05:00 AST 17 Units/L (15-37) 04/25/23 05:00 ALT 25 Units/L (12-78) 04/25/23 05:00 Alkaline Phosphatase 66 Units/L (46-116) 04/25/23 05:00 Total Protein 6.7 g/dL (6.4-8.2) 04/25/23 05:00 Albumin 3.7 g/dL (3.4-5.0) 04/25/23 05:00 Globulin 3.0 g/dL (2.5-4.5) 04/25/23 05:00 Albumin/Globulin Ratio 1.2 Ratio (1.1-2.1) 04/25/23 05:00 Amylase 61 Units/L (25-115) 04/25/23 05:00 Lipase 41 Units/L (16-77) 04/25/23 05:00 Opioid Opioid Risk Tool Age (Rohit box if 16-45): No History of Preadolescent Sexual Abuse: No Total: 0 Total Score Risk Category: Low Risk Copyright: [facility] predicting aberrant behaviors Discharge Plan Diagnosis Discharge Problem: Abdominal distension, Colon cancer, Ureterolithiasis Discharge Plan Patient Disposition: ADMITTED INPATIENT Condition: Stable Prescriptions: No Action losartan 100 mg tablet 100 mg PO QDAY allopurinol 100 mg tablet 1 tab PO QDAY tadalafil 20 mg tablet 20 mg PO QDAY prednisolone acetate 1 % drops,suspension 1 drp OPHTHALMIC (EYE) QID timolol maleate 0.5 % drops 1 drp OPHTHALMIC (EYE) QDAY Health Concerns: Post Hospitalization: new medications and changes needed to prevent readmission or further decline. Pt educated and given instructions on all concerns. Plan of Treatment: Continue with present treatment and follow up plan. Pt is to keep follow up appointment as instructed and take medications as ordered. Orders to Discharge Patient Discharge Orders: Transfer (Routine); Ordered 04/25/23 Ordered By: Ellen Pfeiffer Discharge by Transfer to Outside Facility (Routine); Ordered 04/25/23 Ordered By: Ellen Pfeiffer Follow ups/Referrals Follow ups/Referrals: Maximus Fernandez [Primary Care Provider] - 3 days Instructions Stand Alone Forms: Post Hospital Follow Up Care
[2023-04-25 05:11] LABS: BASOPHILS # (AUTO) 0.1 X10^3/uL (0.0-0.1); BASOPHILS % (AUTO) 0.4 % (0.2-1.0); HEMATOCRIT 54.5 % (42.0-54.0); HEMOGLOBIN 18.2 g/dL (13.5-18.0); LYMPHOCYTES # (AUTO) 0.5 X10^3/uL (1.3-2.9); LYMPHOCYTES % (AUTO) 3.4 % (21.0-51.0); MEAN CORPUSCULAR HEMOGLOBIN 31.3 pg (27.0-34.0); MEAN CORPUSCULAR HGB CONC 33.4 g/dL (33.0-35.0); MEAN PLATELET VOLUME 6.4 fL (7.4-11.0); MONOCYTES # (AUTO) 1.2 x10^3/uL (0.3-0.8); MONOCYTES % (AUTO) 8.6 % (0.0-13.0); NEUTROPHILS # (AUTO) 12.5 x10^3/uL (2.2-4.8); NEUTROPHILS % (AUTO) 87.6 % (42.0-75.0); PLATELET COUNT 240 X10^3/uL (150.0-450.0); WHITE BLOOD COUNT 14.3 X10^3/uL (3.6-10.0)
[2023-04-25 05:22] LABS: ALANINE AMINOTRANSFERASE 25 Units/L (12-78); ALBUMIN 3.7 g/dL (3.4-5.0); ALKALINE PHOSPHATASE 66 Units/L (46-116); AMYLASE 61 Units/L (25-115); ASPARTATE AMINO TRANSFERASE 17 Units/L (15-37); BLOOD UREA NITROGEN 13 mg/dL (7-18); CHLORIDE 102 mmol/L (98-107); COR NA(FOR HYPERGLY) 140 mmol/L (136-145); CREATININE 2.05 mg/dL (0.70-1.30); GLUCOSE 114 mg/dL (65-99); LIPASE 41 Units/L (16-77); POTASSIUM 4.3 mmol/L (3.5-5.1); SODIUM 140 mmol/L (136-145); TOTAL PROTEIN 6.7 g/dL (6.4-8.2); eGFR NON BLACK RACES 36 (>60)
[2023-04-25] MEDS: OMNIPAQUE 350 mg/mL 100 mL BTL 100 ML ONE (06:07)
[2023-04-25] MEDS: NS 100 ML IV 100 ML ONE (06:07)
--- NOTE | 2023-04-25 06:22 | CT ---
EXAM:ABDCMEN/PELVIS WITH CONHISTORY:Abdominal distentionTECHNIQUE:Axial postcontrast images with coronal and sagittal reformats. Dose reduction procedures were used with mA/kv adjusted for body size.COMPARISON:04/24/2022FINDINGS:Lung bases are clear. The liver, spleen, adrenal glands, and pancreas are within normal limits. No opaque stones are present within the gallbladder. Right kidney is unobstructed. There is a 2.5 mm nonobstructing right upper pole renal calculus present. No ureteral calculi are identified. Multiple nonobstructing left renal calculi are identified. There is left-sided hydroureteronephrosis proximal to a 5 mm calculus located in the left mid ureter at the L4-5 level. There is extensive periureteral fat stranding in the area of the mid ureter possibly due to ureteritis. Additionally there is a 3.8 mm calcification in the bladder which could represent either a not significantly obstructing distal left ureteral calculus at or near the ureterovesical junction or a recently passed calculus. The appendix is normal. Abdominal aorta is normal in caliber. No enlarged intraperitoneal or retroperitoneal lymphadenopathy of significance is identified. There are no findings suggestive of enteritis, colitis, or diverticulitis. There is moderate colonic distention extending from the cecum to the proximal descending colon. There is short-segment area of transmural thickening and luminal narrowing in the proximal most descending colon best visualized on coronal series number 5 image 35, sagittal series 6 image 11 and axial series 3, image 35. Although this could represent spasm, a stricture or neoplasm must be excluded. Correlation with air-contrast barium enema is recommended. No pelvic masses, pelvic fluid, or pelvic lymphadenopathy is identified. Prostate gland is mildly enlarged. No lytic or blastic skeletal lesions of significance are identified.IMPRESSION:5 mm obstructing left mid ureteral calculus at the L4-5 level.There is a 2nd calculus measuring a proximally 3.8 mm in the area of the left ureterovesical junction which could represent a nonobstructing calculus or recently passed calculusBilateral nonobstructing nephrolithiasisDistention of the colon to the level of the proximal descending colon where there is short segment of transmural thickening and luminal narrowing. This could represent persistent spasm however neoplasm and stricture must be excluded. Correlation with air-contrast barium enema or colonoscopy should be considered.Mild prostatic enlargementTHIS IS AN ELECTRONICALLY VERIFIED FINAL REPORT04/25/2023 6:18 AM - Electronically signed by Villa Paulino MD
[2023-04-25] MEDS ORDERED: DILAUDID INJ ONE (07:26)
[2023-04-25] MEDS ORDERED: ZOFRAN INJ 4 MG VIAL ONE (07:26)
[2023-04-25] MEDS: DILAUDID INJ IVP ONE (07:31)
[2023-04-25] MEDS: ZOFRAN INJ 4 MG VIAL IVP ONE (07:32)
[2023-04-25] MEDS ORDERED: DILAUDID INJ IVP PRN (07:47)
[2023-04-25] MEDS ORDERED: LR 1,000 ML IV 1,000 ML IV ONE (08:14)
[2023-04-25] MEDS: LR 1,000 ML IV 1,000 ML IV SCH (08:19)
[2023-04-25] MEDS ORDERED: ZOSYN VIAL 3.375 GRAMS IV ONE (08:56)
[2023-04-25] MEDS: ZOSYN VIAL 3.375 GRAMS 3.375 G in NS 100 ML IV 100 ML IV SCH ×3 (09:03→13:07)
[2023-04-25] MEDS: NS 50 ML IV 50 ML IV ONE (09:04)
[2023-04-25] MEDS: DIPRIVAN VIAL 20 ML ONE (09:51)
[2023-04-25 11:52] VITALS: BMI 28.6
[2023-04-25] MEDS: D5 1/2 NS 1,000 ML 1,000 ML IV SCH (13:07)
[2023-04-25] MEDS: TIMOPTIC 0.5% EYE DROPS OP SCH (15:58)
[2023-04-25] MEDS: CIALIS PO SCH (15:58)
[2023-04-25] MEDS: PRED FORTE 1 % OP SCH (15:58)
[2023-04-25] MEDS: ZYLOPRIM PO SCH (16:07)
[2023-04-25] MEDS: FLEET ENEMA ADULT PR ONE (16:07)
[2023-04-25] MEDS: COZAAR PO SCH (16:10)
[2023-04-25] MEDS: ZOFRAN INJ 4 MG VIAL IVP PRN (16:33)
[2023-04-25] MEDS ORDERED: PHENERGAN INJ 25 MG IM PRN (16:49)
[2023-04-25] MEDS: PROTONIX INJ 40 MG VIAL IVP SCH (18:24)
--- NOTE | 2023-04-26 05:33 | RAD ---
EXAM: KUB HISTORY: ABD DISTENTION, N/V ; HTN, GOUT SX: HERNIA REPAIR, CORNEA TRANSPLANT X2 Unavailable COMPARISON: None. FINDINGS: Evaluation of the abdomen demonstrates moderate gaseous distention of the colon to the level of the d istal descending colon. Small bowel is unremarkable. No pathological soft tissue mass or calcificat ion can be observed. The bony structures are grossly intact. IMPRESSION: Moderate gaseous distention of the colon to the level of the distal descending colon. Follow-up radiographs may be helpful in further evaluation. THIS IS AN ELECTRONICALLY VERIFIED FINAL REPORT 04/26/2023 5:30 AM - Electronically signed by Nasir Chaudhary MD
[2023-04-26 05:47] LABS: BASOPHILS % (AUTO) 0.2 % (0.2-1.0); EOSINOPHILS % (AUTO) 0.1 % (0.9-2.9); LYMPHOCYTES # (AUTO) 0.9 X10^3/uL (1.3-2.9); LYMPHOCYTES % (AUTO) 7.3 % (21.0-51.0); MEAN CORPUSCULAR HEMOGLOBIN 31.5 pg (27.0-34.0); MEAN CORPUSCULAR VOLUME 92.7 fL (80.0-100.0); MEAN PLATELET VOLUME 6.7 fL (7.4-11.0); MONOCYTES # (AUTO) 1.5 x10^3/uL (0.3-0.8); MONOCYTES % (AUTO) 12.8 % (0.0-13.0); NEUTROPHILS # (AUTO) 9.6 x10^3/uL (2.2-4.8); NEUTROPHILS % (AUTO) 79.6 % (42.0-75.0); PLATELET COUNT 245 X10^3/uL (150.0-450.0); RED BLOOD COUNT 5.39 X10^6/uL (4.7-6.0); RED CELL DISTRIBUTION WIDTH 13.3 % (11.6-16.5); WHITE BLOOD COUNT 12.1 X10^3/uL (3.6-10.0)
[2023-04-26 05:55] LABS: ALBUMIN 3.1 g/dL (3.4-5.0); CALCIUM 8.5 mg/dL (8.5-10.1); CARBON DIOXIDE 28.8 mmol/L (21-32); COR CA(FOR HYPOALB) 9.2 mg/dL (8.5-10.1); CREATININE 2.12 mg/dL (0.70-1.30); POTASSIUM 4.4 mmol/L (3.5-5.1); TOTAL PROTEIN 6.2 g/dL (6.4-8.2)
[2023-04-26] MEDS: FLEET ENEMA ADULT PR ONE (10:28)
[2023-04-26 12:06] VITALS: BP 173/93; PULSE 83; RESP 18; TEMP 97.8; O2SAT 96
== END 2023-04-26 14:15 | disposition home or self-care (01) ==
LOC: MED/SURG 04:33 → ER 04:33 → MED/SURG 09:28
PROVIDERS: ADMIT Surgery; ATTEND Surgery